=== PATIENT | female | born 1965 | race Caucasian/White ===

== ENCOUNTER 2017-06-16 22:08 | Emergency (ER) | payer MEDICARE, MEDICAID ==
[2017-06-16 22:29] VITALS: TEMP 97.9
--- NOTE | 2017-06-16 23:19 | C.PDOC ---
History Of Present Illness 52 year old female who presents to the ER for a complaint of a small lump on her right foot between the 4th and 5th metatarsal. Patients states she has surgery on Saturday to remove some varicose veins from the right leg; she notes having some soreness due to the procedure but no severe pain. Patient has had no complications but notes having this lump; she states she called her vascular doctor but he is on vacation so he advised her to come to the ER for an evaluation. Denies weakness or numbness. Time Seen by Provider: 06/16/17 22:47 Chief Complaint (Nursing): Abnormal Skin Integrity History Per: Patient History/Exam Limitations: no limitations Onset/Duration Of Symptoms: Days Current Symptoms Are (Timing): Still Present Location Of Injury: Right: Foot Quality Of Symptoms: Painful Recent travel outside of the [place]: No Past Medical History Reviewed: Historical Data, Nursing Documentation, Vital Signs Vital Signs: Last Vital Signs Temp 97.9 F 06/16/17 22:24 Pulse 85 06/16/17 23:24 Resp 18 06/16/17 23:24 BP 142/77 06/16/17 23:24 Pulse Ox 98 06/17/17 00:50 - Medical History PMH: Asthma, COPD, HTN, Hypercholesterolemia, Migraine (since age of 14) - [facility] Procedures CLOSURE SKIN & SUBCUTANEOUS NEC (05/05/15) TETANUS TOXOID ADMINIST (05/05/15) Family History: States: Unknown Family Hx - Social History Hx Tobacco Use: Yes Hx Alcohol Use: No Hx Substance Use: No - Immunization History Hx Tetanus Toxoid Vaccination: Yes (05/05/2015) Hx Influenza Vaccination: No Hx Pneumococcal Vaccination: No Review Of Systems Musculoskeletal: Positive for: Foot Pain Skin: Positive for: Other (Lump) Neurological: Negative for: Weakness, Numbness Physical Exam - Physical Exam Appears: Non-toxic, No Acute Distress Skin: Normal Color, Warm, Dry Head: Atraumatic, Normacephalic Extremity: No Calf Tenderness, No Swelling, Other (Dressing and raisa wrap in place from right ankle up, mild tenderness to surgical site. 5mm diameter palpable, mobile, firm, mass between right 4th and 5th metatarsal bones, no warmth or erythema.) Pulses: Left Dorsalis Pedis: Normal, Right Dorsalis Pedis: Normal Neurological/Psych: Oriented x3, Normal Speech, Normal Cognition ED Course And Treatment O2 Sat by Pulse Oximetry: 98 (Room air) Pulse Ox Interpretation: Normal - Other Rad Right foot x-ray X-Ray: Interpreted by Me, Viewed By Me Interpretation: No mass visualized. Progress Note: Right foot x-ray ordered. X-rays were negative for abnormalities ; patient will be discharged and instructed to follow up with her vascular doctor and Herb Grower. Disposition - Disposition Referrals: Leonard Rhoades DPM [Staff Provider] - Disposition: HOME/ ROUTINE Disposition Time: 23:16 Condition: STABLE Additional Instructions: Follow up with PMD, vascular surgeon and Herb Grower within 1-2 days. Return to ED if feel worse. Instructions: Varicose Veins (ED) Forms: [facility] ([place]) - Clinical Impression Clinical Impression: Foot pain - Scribe Statement The provider has reviewed the documentation as recorded by the Scribgurdeep Yusuf All medical record entries made by the Scribe were at my direction and personally dictated by me. I have reviewed the chart and agree that the record accurately reflects my personal performance of the history, physical exam, medical decision making, and the department course for this patient. I have also personally directed, reviewed, and agree with the discharge instructions and disposition.
[2017-06-16 23:25] VITALS: BP 142/77; PULSE 85; RESP 18
[2017-06-17 00:39] VITALS: O2SAT 98
--- NOTE | 2017-06-17 11:10 | RAD ---
PROCEDURE: Right Foot Radiographs. But HISTORY: palpable mass of the right foot COMPARISON: None. FINDINGS: BONES: No evidence of fracture. Very small plantar calcaneal spur. No lytic or blastic osseous lesion. JOINTS: Normal. SOFT TISSUES: Normal. OTHER FINDINGS: None. IMPRESSION: No mass identified. Very small plantar calcaneal spur.
== END 2017-06-16 23:25 | disposition home or self-care (01) ==
LOC: C.ER 22:08
DX: M79.671 Pain in right foot (principal)